=== PATIENT | female | born 1990 | race Caucasian/White ===

== ENCOUNTER → 2016-06-22 | Outpatient (CLI) | payer MEDICAID ==
[~2016-06-22] MED LIST: ACET50TA PO; IBUP60TA PO; PREN1TAB11 PO
[2016-06-22 13:09] LABS: BASO % 0.5 % (0.0-1.0); EOS # 0.2 K/mm3 (0.0-0.50); EOS % 2.3 % (0.0-3.0); LARGE UNSTAINED CELL # 0.2 K/mm3 (0.0-0.4); LARGE UNSTAINED CELL % 1.7 % (0.0-4.0); LYMPH # 1.7 K/mm3 (1.5-6.5); LYMPH % 16.4 % (24.0-44.0); MEAN CORPUSCULAR HEMOGLOBIN 29.9 pg (27.0-33.0); MEAN CORPUSCULAR HGB CONC 32.8 g/dl (32.0-36.5); MEAN CORPUSCULAR VOLUME 91.3 fl (80.0-96.0); MONO # 0.4 K/mm3 (0.0-0.8); MONO % 4.1 % (0.0-5.0); NEUTROPHILS # 7.9 K/mm3 (1.8-7.7); NEUTROPHILS % 75.1 % (36.0-66.0); PLATELET COUNT, AUTOMATED 206 k/mm3 (150-450); RED CELL DISTRIBUTION WIDTH 12.2 % (11.5-14.5); WHITE BLOOD COUNT 10.6 K/mm3 (4.0-10.0)
[2016-06-22 13:11] LABS: HBsAg Prenatal NEGATIVE (NEGATIVE)
[2016-06-22 14:05] LABS: HIV SCRN NEGATIVE (NEGATIVE); HIV SCRN1 NEGATIVE (NEGATIVE)
[2016-06-22 14:06] LABS: CONTROL LINE INT CTR LINE PRESENT
== END ==
LOC: MERGE 09:57 → M LAB 09:57
PROVIDERS: ATTEND Obstetrics & Gynecology
DX: Z36 Encounter for antenatal screening of mother (principal)

== ENCOUNTER → 2016-06-23 | Outpatient (CLI) | payer MEDICAID ==
--- NOTE | 2016-06-23 12:22 | REP ---
Third trimester obstetrical ultrasound: There are no prior ultrasounds available during this gestation. There is an single intrauterine gestation in a vertex presentation. There is movement and cardiac activity, the heart rate is 150 beats per minute. The placenta is fundal. There is no placenta previa or placental abruptio. The placenta is grade 1 maturity. Subjectively the amniotic fluid volume is normal. The amniotic fluid index is 11.5 (8.0 - 24.9). The cervix is 3.8 cm length. By today's ultrasound gestational age is 34 weeks 4 days. The YA is 07/31/2016. weight is 2513 grams (5 pounds, 8 ounces). This is the 50th percentile for 34 weeks 4 days. Umbilical artery Doppler assessment: Resistive index is 0.55 (a 0.59 - 0.75) S/D ratio 2.21 (2.00 - 3.00). Diastolic flow velocity 27.7 cm per second - normal. Evaluation of anatomy during the third trimester is suboptimal. However, during the examination we are able to identify normal intracranial lateral ventricles, choroid plexus, cavum septum pellucidum, cerebellum/posterior fossa, lungs, diaphragm, stomach, three-vessel cord, kidneys, bladder and spine. The remainder of the anatomy could not be adequately demonstrated. Signed by Wing Worthy MD 06/23/2016 12:13 P
== END ==
LOC: M RAD 10:28 → MERGE 11:00
PROVIDERS: ATTEND Obstetrics & Gynecology
DX: Z36 Encounter for antenatal screening of mother (principal); Z3A.34 34 weeks gestation of pregnancy

== ENCOUNTER 2016-07-04 11:24 | Inpatient (IN) | payer MEDICAID, OTHER ==
[~2016-07-04] VITALS: Ht 170.2 cm; Wt 74.0 kg
[2016-07-04 11:38] VITALS: BP 124/73
[2016-07-04] MEDS ORDERED: LACTATED RINGER'S 1000 ML IV STA (12:09)
[2016-07-04] MEDS ORDERED: OXYTOCIN DRIP 30 UNITS in APPROPRIATE DILUENT 1 EA IV SCH (12:15)
[2016-07-04] MEDS ORDERED: PROMETHAZINE INJ 25 MG/ML VIAL (J2550) IV PRN (12:15)
[2016-07-04] MEDS ORDERED: BUTORPHANOL 2 MG/ML INJ (J0595) IV PRN (12:15)
[2016-07-04] MEDS ORDERED: LR 1,000 ML IV SCH (12:45)
[2016-07-04 12:48] VITALS: BP 115/61
[2016-07-04 12:56] LABS: AMPHETAMINES URINE REFLEX NEGATIVE (NEGATIVE); BARBITURATES URINE REFLEX NEGATIVE (NEGATIVE); BENZODIAZEPINES URINE REFLEX NEGATIVE (NEGATIVE); COCAINE METABOLITE URINE REFLE NEGATIVE (NEGATIVE); MEAN CORPUSCULAR HEMOGLOBIN 31.7 pg (27.0-33.0); MEAN CORPUSCULAR HGB CONC 34.7 g/dl (32.0-36.5); MEAN CORPUSCULAR VOLUME 91.4 fl (80.0-96.0); METHADONE URINE REFLEX NEGATIVE (NEGATIVE); OPIATES URINE REFLEX NEGATIVE (NEGATIVE); PHENCYCLIDINE URINE REFLEX NEGATIVE (NEGATIVE); RED CELL DISTRIBUTION WIDTH 12.9 % (11.5-14.5); WHITE BLOOD COUNT 12.6 K/mm3 (4.0-10.0)
[2016-07-04 13:18] VITALS: BP 113/61
[2016-07-04 13:48] VITALS: BP 116/65
[2016-07-04 14:18] VITALS: BP 108/55
[2016-07-04 14:51] VITALS: BP 107/55
--- NOTE | 2016-07-05 07:50 | HPE ---
DATE OF ADMISSION: 07/04/2016 26-year-old 5, para 0-3-1-3, estimated date of delivery 07/26/2016. Reports spontaneous rupture of membranes clear fluid this morning at 02:00 followed by onset of irregular contractions. Denies bleeding. Fetus is active. Last normal menstrual period unknown. complicated by inadequate care. Ultrasound at 21 weeks at [place] confirmed the date of 07/26/2016. Only visit recorded has been at [facility] on June 22 at 33 weeks. panel and group B strep recently obtained. Growth sonogram 06/23/2016, showed estimated weight of 2513 grams, cephalic 50th percentile. OBSTETRICAL HISTORY: 1. 2012, normal spontaneous vaginal , 33 weeks viable female 4 pounds 7 ounces. 2. 2013, early miscarriage. 3. 2014, normal spontaneous vaginal , viable female 33 weeks 3 pounds 7 ounces, received weekly progesterone injections. 4. 2015, normal spontaneous vaginal , 36 weeks viable female 6 pounds 7 ounces weekly progesterone injections. ALLERGIES: No known drug allergies. MEDICAL/SURGICAL HISTORY: noncontributory. FAMILY HISTORY: Cardiac disease. SOCIAL HISTORY: . Family present. Reports smoking one half pack per day. Denies alcohol or drugs. OBJECTIVE: Prepregnancy weight 145, total weight gain 31 pounds. B negative. No record of receiving RhoGAM this . Rubella immune. VDRL, hepatitis B, hepatitis C, HIV, gonorrhea, Chlamydia all negative. 1-hour glucose 99 and group B strep is negative. Vital signs are stable. No apparent distress. Heart rate is regular. Respirations are easy. Abdomen is soft, gravid, longitudinal lie. Irregular contractions. heart 135, moderate variability with accelerations. Sterile spec exam moderate clear fluid draining per vagina. Positive Nitrazine, positive fern. Sterile vaginal exam: 1 cm high and posterior. ASSESSMENT: 1. Multipara. 2. premature rupture of membranes at 36 weeks 6 days, category one tracing. PLAN: Admit per consult. Pitocin augmentation of labor. The patient considering epidural. Anticipate normal spontaneous vaginal .
[2016-07-06] MEDS ORDERED: INFLUENZA QUADRIVALENT PF VACCINE 0.5ML SYRINGE/VIAL (90686) IM ONE (11:00)
[2016-07-06] MEDS ORDERED: ADACEL/BOOSTRIX VACCINE (DIPHTH/PERTUSS/ACELL/TETANUS)0.5ML SYR (90715) IM ONE (12:00)
== END 2016-07-04 15:57 | disposition left against medical advice (07) | DRG 566 ==
LOC: M LDI 11:24
PROVIDERS: ADMIT Advanced Practice Midwife; ATTEND Advanced Practice Midwife
DX: O42.013 Preterm premature rupture of membranes, onset of labor within 24 hours of rupture, third trimester (principal); Z3A.36 36 weeks gestation of pregnancy

== ENCOUNTER 2016-07-04 17:56 | Inpatient (IN) | payer MEDICAID ==
[~2016-07-04] VITALS: Ht 170.2 cm; Wt 76.0 kg
[2016-07-04] MEDS ORDERED: ANUSOL HC CREAM 30GM TOP PRN (18:45)
[2016-07-04] MEDS ORDERED: RHOGAM 300 MCG (1500 IU) INJ (J2790) IM SCH (18:45)
[2016-07-04] MEDS ORDERED: DIBUCAINE 1% OINTMENT 30GM TOP PRN (18:45)
[2016-07-04] MEDS ORDERED: METHYLERGONOVINE MALEATE 0.2 MG TAB PO PRN (18:45)
[2016-07-04] MEDS ORDERED: MOM 30ML SUSPENSION UDC PO PRN (18:45)
[2016-07-04] MEDS ORDERED: OXYTOCIN INJ 10 UNITS/ML VIAL (J2590) IM ONE (18:45)
[2016-07-04] MEDS ORDERED: ACETAMINOPHEN 500 MG TAB PO PRN (18:45)
[2016-07-04] MEDS ORDERED: DOCUSATE SODIUM 100 MG CAP PO PRN (18:45)
[2016-07-04] MEDS ORDERED: MEASLES,MUMPS,RUBELLA VACCINE INJ (MMR-II) (90707) SC SCH (18:45)
[2016-07-04] MEDS ORDERED: IBUPROFEN 800 MG TAB PO PRN (18:45)
[2016-07-04 19:22] LABS: AMPHETAMINES URINE REFLEX NEGATIVE (NEGATIVE); BARBITURATES URINE REFLEX NEGATIVE (NEGATIVE); BENZODIAZEPINES URINE REFLEX NEGATIVE (NEGATIVE); COCAINE METABOLITE URINE REFLE NEGATIVE (NEGATIVE); METHADONE URINE REFLEX NEGATIVE (NEGATIVE); OPIATES URINE REFLEX NEGATIVE (NEGATIVE)
[2016-07-04 19:49] LABS: CORD GAS ABE V -13.1; CORD GAS HCO3 V 13.2 MEQ/L; CORD GAS O2 SAT V 81.3 %; CORD GAS PCO2 V 32.2 mmHg; CORD GAS PH V 7.23 UNITS; CORD GAS PO2 V 39.1 mmHg; CORD GAS SBC V 14.2 MEQ/L; CORD GAS TCO2 V 14.2 MEQ/L
[2016-07-04 20:10] LABS: PHENCYCLIDINE URINE REFLEX NEGATIVE (NEGATIVE)
[2016-07-04 20:36] VITALS: BP 132/72
[2016-07-05] MEDS ORDERED: PRENATAL VITAMIN TAB PO SCH (09:00)
[2016-07-05] MEDS ORDERED: INFLUENZA QUADRIVALENT PF VACCINE 0.5ML SYRINGE/VIAL (90686) IM SCH (09:00)
[2016-07-05] MEDS ORDERED: ADACEL/BOOSTRIX VACCINE (DIPHTH/PERTUSS/ACELL/TETANUS)0.5ML SYR (90715) IM ONE (09:00)
--- NOTE | 2016-07-05 09:34 | HPE ---
DATE OF ADMISSION: 07/04/2016 26-year-old 5, para 0-3-1-3, estimated date of delivery 07/26/2016. Reports spontaneous rupture of membranes clear fluid this morning at 02:00 followed by onset of regular contractions. Denies bleeding. Fetus is active. Presents again after [facility] discharge today at 15:57. Last known menstrual period unknown. complicated by inadequate care. Sonogram at 21 weeks at [facility] confirmed the date of 07/26/2016. Only visit has been at [facility] 06/22/2016, at 33 weeks approximately. panel and group B strep recently obtained. Growth sonogram on 06/23/2016, shows estimated weight 2513 grams, cephalic and 50%. OBSTETRICAL HISTORY: 1. 2012, normal spontaneous vaginal , 33 weeks viable female 4 pounds 7 ounces. 2. 2013, early miscarriage. 3. 2014, normal spontaneous vaginal , viable female 33 weeks, 3 pounds 7 ounces, weekly progesterone injections. 4. 2015, normal spontaneous vaginal at 36 weeks, viable female 6 pounds 7 ounces, weekly progesterone injections. ALLERGIES: No known drug allergies. MEDICAL-SURGICAL HISTORY: Noncontributory. FAMILY HISTORY: Cardiac disease. SOCIAL HISTORY: . Family present. Reports smoking one half pack per day. Denies alcohol or drugs. OBJECTIVE: Prepregnancy weight 145, total weight gain 31 pounds. A negative. No record of receiving RhoGAM this . Rubella immune. VDRL, hepatitis B, hepatitis C, HIV, gonorrhea, Chlamydia all negative. 1-hour glucose 99. Group B strep is negative. Vital signs are stable. Breathing with contractions with urge to push. Abdomen is soft, gravid, longitudinal lie. Contractions every 2-3 minutes and strong. heart 135, moderate variability with accelerations. Clear fluid draining per vagina. STERILE VAGINAL EXAM: Fully dilated, +1 station. ASSESSMENT: 1. Multipara. 2. , premature rupture of membranes (PPROM) at 36 weeks 6 days. 3. Category one tracing. 4. Imminent delivery. PLAN: Admit. Anticipate normal spontaneous vaginal . [facility]
--- NOTE | 2016-07-05 13:27 | DN ---
DATE: 07/04/2016 DELIVERY NOTE: Spontaneous rupture of membranes clear fluid 0200 hours. Pitocin augmentation of labor. Patient left against medical advice (AMA) at 1557 hours, at 3-4 cm dilated. She was fully dilated upon return to unit. Viable female delivery right occiput anterior (COLEEN) through tight nuchal cord at 1807 hours. Slow to transition. Cord doubly clamped and cut. to warmer for stimulation and resuscitation. score and weight pending. Placenta Golden intact with three-vessel cord at 1816 hours. Fundus firmed with massage and IM Pitocin 10 units. Estimated blood loss 300 mL. Perineum intact. Right labial laceration noted. Patient refused repair. Straight cath at delivery for the urine drug screen (UDS). Sponge, sharp and instrument count correct. MTDD
[2016-07-06 08:20] LABS: URINE ETHANOL 1 Negative % (Cutoff=0.020)
== END 2016-07-04 21:05 | disposition left against medical advice (07) | DRG 560 ==
LOC: M LDI 17:56 → M OBS 20:05
PROVIDERS: ADMIT Advanced Practice Midwife; ATTEND Advanced Practice Midwife
PROC: 10E0XZZ Delivery of Products of Conception, External Approach (ICD-10-PCS; principal; 2016-07-04)
DX: O42.013 Preterm premature rupture of membranes, onset of labor within 24 hours of rupture, third trimester (principal); Z37.0 Single live birth; Z3A.36 36 weeks gestation of pregnancy; O09.30 Supervision of pregnancy with insufficient antenatal care, unspecified trimester; O70.0 First degree perineal laceration during delivery; O69.89X0 Labor and delivery complicated by other cord complications, not applicable or unspecified

== ENCOUNTER → 2017-12-07 | Outpatient (CLI) | payer MEDICAID ==
[2017-12-07 13:18] LABS: BASO % 0.4 % (0.0-1.0); EOS # 0.3 10^3/uL (0.0-0.50); EOS % 2.5 % (0.0-3.0); HEMATOCRIT 39.3 % (36.0-47.0); HEMOGLOBIN 13.3 g/dl (12.0-15.5); IMMATURE GRANULOCYTE % 0.4 % (0-3.0); LYMPH # 2.2 10^3/uL (1.5-6.5); LYMPH % 21.8 % (24.0-44.0); MEAN CORPUSCULAR HEMOGLOBIN 31.4 pg (27.0-33.0); MEAN CORPUSCULAR HGB CONC 33.8 g/dl (32.0-36.5); MEAN CORPUSCULAR VOLUME 92.9 fl (80.0-96.0); MONO # 0.7 10^3/uL (0.0-0.8); MONO % 7.3 % (0.0-5.0); NEUTROPHILS # 6.7 10^3/uL (1.8-7.7); NEUTROPHILS % 67.6 % (36.0-66.0); PLATELET COUNT, AUTOMATED 230 10^3/uL (150-450); RED BLOOD COUNT 4.23 10^6/uL (4.00-5.40); WHITE BLOOD COUNT 9.9 10^3/uL (4.0-10.0)
[2017-12-07 15:07] LABS: CHLAMYDIA DNA AMPLIFICATION NEGATIVE (NEGATIVE); GC DNA AMPLIFICATION NEGATIVE (NEGATIVE)
[2017-12-08 10:04] LABS: RUBELLA IgG QUALITATIVE IMMUNE (IMMUNE)
[2017-12-08 10:17] LABS: HBsAg Prenatal NEGATIVE (NEGATIVE)
[2017-12-08 10:34] LABS: HEPATITIS C VIRUS ABY INDEX 0.3 INDEX (<0.8)
[2017-12-08 10:34] LABS: HIV 1&2 SCREEN CENTAUR NEGATIVE (NEGATIVE)
== END ==
LOC: M SMT 10:31
DX: Z36.89 Encounter for other specified antenatal screening (principal); Z3A.01 Less than 8 weeks gestation of pregnancy
CPT/HCPCS: 86762

== ENCOUNTER → 2018-02-27 | Outpatient (CLI) | payer MEDICAID | LOC: M SMT 13:21 | DX: Z36.9 Encounter for antenatal screening, unspecified (principal); Z3A.19 19 weeks gestation of pregnancy | CPT/HCPCS: 76811 ==

== ENCOUNTER → 2018-05-04 | Outpatient (CLI) | payer MEDICAID ==
[~2018-05-04] MED LIST changes: -ACET50TA PO; +MAPA500T2 PO
[2018-05-04 10:42] LABS: BASO # 0.1 10^3/uL (0.0-0.2); BASO % 0.5 % (0.0-1.0); EOS # 0.2 10^3/uL (0.0-0.50); EOS % 1.8 % (0.0-3.0); HEMATOCRIT 34.4 % (36.0-47.0); HEMOGLOBIN 11.6 g/dl (12.0-15.5); LYMPH % 16.9 % (24.0-44.0); MEAN CORPUSCULAR HEMOGLOBIN 31.6 pg (27.0-33.0); MEAN CORPUSCULAR HGB CONC 33.7 g/dl (32.0-36.5); MEAN CORPUSCULAR VOLUME 93.7 fl (80.0-96.0); MONO # 0.8 10^3/uL (0.0-0.8); MONO % 7.1 % (0.0-5.0); NEUTROPHILS # 8.7 10^3/uL (1.8-7.7); NEUTROPHILS % 73.4 % (36.0-66.0); PLATELET COUNT, AUTOMATED 206 10^3/uL (150-450); RED BLOOD COUNT 3.67 10^6/uL (4.00-5.40); WHITE BLOOD COUNT 11.8 10^3/uL (4.0-10.0)
== END ==
LOC: M SMT 09:36
PROVIDERS: ATTEND Specialist
DX: O09.212 Supervision of pregnancy with history of pre-term labor, second trimester (principal)
CPT/HCPCS: 36415; 85025; 86850; 86870; 86900; 86901; J2790

== ENCOUNTER → 2018-06-19 | Outpatient (REF) | payer OTHER, MEDICAID | LOC: M LAB REF 13:36 | PROVIDERS: ATTEND Advanced Practice Midwife | DX: O09.213 Supervision of pregnancy with history of pre-term labor, third trimester (principal); Z3A.00 Weeks of gestation of pregnancy not specified ==

== ENCOUNTER 2018-07-03 16:21 | Inpatient (IN) | payer OTHER ==
[~2018-07-03] VITALS: Ht 170.2 cm; Wt 83.5 kg
[2018-07-03 16:36] VITALS: BP 117/74
[2018-07-03] MEDS ORDERED: LR 1,000 ML IV SCH (17:00)
[2018-07-03] MEDS ORDERED: OXYTOCIN DRIP 30 UNITS in APPROPRIATE DILUENT 1 EA IV SCH ×2 (17:00→19:00)
--- NOTE | 2018-07-03 17:16 | HPE ---
DATE OF ADMISSION: 07/03/2018 Berenice is a 28-year-old, 6, para 0-4-1-4 at 37-2/7 weeks' gestation with an estimated date of confinement (EDC) of 07/22/2018 based on first-trimester ultrasound. She presents to labor and delivery today with report of spontaneous rupture of membranes at approximately 2100 last night. She denies any regular painful contractions. She does report continued leakage of fluid. Denies vaginal bleeding. care initiated at [facility] in the first trimester. course complicated by a history of delivery times four. She was offered Flores injections and did ultimately decline. She is noncompliant with care and tobacco use throughout her . OBSTETRIC HISTORY: February 2013: 33-week gestation, 4 pound 7 ounce female, vaginal delivery. May 2013: Spontaneous miscarriage. June 2014: 33 weeks' gestation, 3 pound 7 ounce female, vaginal delivery. July 2015: 36 weeks' gestation, 6 pound 7 ounce female, vaginal delivery. June 2016: 36-6/7 weeks, 5 pound 10 ounce female, vaginal delivery. OBSTETRIC LABORATORIES: A negative, antibody screen negative, rubella immune, [facility] ([facility]) nonreactive. Urine culture no growth. Hepatitis B surface antigen negative, HIV negative, hepatitis C antibody nonreactive, gonorrhea and chlamydia negative. Gestational diabetic screening normal.. Group B streptococcus (GBS) is negative. PAST MEDICAL HISTORY: Noncontributory. SURGERIES: None. FAMILY HISTORY: Diabetes, heart disease. SOCIAL HISTORY: The patient is . She is here alone for her labor at this time. Her mother is en route to the hospital. She is a tobacco user. Denies alcohol and drug use. Denies history of any sexually-transmitted infection. Denies history of abuse: physical, sexual, and emotional. ALLERGIES: No known drug allergies. CURRENT MEDICATION: Includes: - vitamin OBJECTIVE: Temperature 97.7, pulse 99, respirations 16, blood pressure (BP) is 117/74. heart rate is 150 with moderate variability, positive accelerations, no decelerations. There is an occasional contraction that palpates mild. She was seen in the office and noted to be ruptured, positive Nitrazine, positive ferning, grossly ruptured. Sterile vaginal examination: 5 cm dilated. Her abdomen is gravid, cephalic presentation. Estimated weight 6-1/2 pounds. ASSESSMENT: Intrauterine at 37-2/7 weeks. heart rate category one. Premature rupture of membranes (PROM). PLAN: Admit the patient to labor and delivery. Out of bed ad dalia. Clear-liquid diet at this time. Routine laboratories. Start intravenous (IV) Pitocin for labor induction. The patient has been verbally consented for emergency surgery and blood products if necessary. I do anticipate an active labor and a spontaneous vaginal delivery.
[2018-07-03 17:20] LABS: HEMATOCRIT 38.9 % (36.0-47.0); HEMOGLOBIN 13.1 g/dl (12.0-15.5); MEAN CORPUSCULAR HEMOGLOBIN 31.3 pg (27.0-33.0); MEAN CORPUSCULAR HGB CONC 33.7 g/dl (32.0-36.5); MEAN CORPUSCULAR VOLUME 93.1 fl (80.0-96.0); PLATELET COUNT, AUTOMATED 263 10^3/uL (150-450); RED BLOOD COUNT 4.18 10^6/uL (4.00-5.40); WHITE BLOOD COUNT 16.9 10^3/uL (4.0-10.0)
[2018-07-03] MEDS ORDERED: DIBUCAINE 1% OINTMENT 30GM TOP PRN (19:00)
[2018-07-03] MEDS ORDERED: RHOGAM 300 MCG (1500 IU) INJ (J2790) IM SCH (19:00)
[2018-07-03] MEDS ORDERED: DOCUSATE SODIUM 100 MG CAP PO PRN (19:00)
[2018-07-03] MEDS ORDERED: ACETAMINOPHEN 500 MG TAB PO PRN (19:00)
[2018-07-03] MEDS ORDERED: METHYLERGONOVINE MALEATE 0.2 MG TAB PO PRN (19:00)
[2018-07-03] MEDS ORDERED: MEASLES,MUMPS,RUBELLA VACCINE INJ (MMR-II) (90707) SC SCH (19:00)
--- NOTE | 2018-07-03 19:38 | DN ---
DATE: 07/03/2018 Berenice is a 28-year-old 6, para 1-4-1-5 now who was admitted to labor and delivery with premature rupture of membranes. IV Pitocin was started and labor did ensue. She utilized physiological coping mechanisms to cope with her labor. She progressed to full dilation at 1838. She pushed to a normal spontaneous vaginal delivery of a live female infant in occiput anterior (OA) position with restitution to ROT position at 1845. There is a nuchal cord times one, loose, reduced manually at the time of delivery. Shoulders delivered with gentle downward guidance and the corpus immediately followed. The female was placed on maternal abdomen, crying and active. Her mouth and nares were bulb suctioned. The cord was clamped times two once pulsations ceased and cut by the maternal grandmother under my direction. Cord blood was obtained. Spontaneous expulsion of an intact placenta with three-vessel cord by Terrell mechanism was at 1849. Uterine hemostasis achieved with IV Pitocin rapid infusion and uterine fundal massage. Estimated blood loss 250 mL. Perineum and vagina inspected, noted to have a right labial laceration. The patient refused repair of her laceration, it was not bleeding. [place] female weighed 5 pounds 13 ounces. 2650 grams. 9 and 9. Mom is going to bottle feed her and the family have named her [place]. At the close of delivery, lap counts and instrument counts were correct and verified.
[2018-07-03] MEDS: IBUPROFEN 800 MG TAB PO PRN (20:56)
[2018-07-03 21:29] VITALS: BP 124/64
[2018-07-04 06:21] VITALS: BP 135/66
[2018-07-04] MEDS ORDERED: PRENATAL VITAMINS CHEWABLE TABLET PO SCH (09:00)
[2018-07-04] MEDS: IBUPROFEN 800 MG TAB PO PRN (09:46)
[2018-07-04] MEDS ORDERED: IBUP-1114 PO (15:43)
[2018-07-04] MEDS ORDERED: MAPA500T2 PO (15:43)
== END 2018-07-04 20:00 | disposition home or self-care (01) | DRG 560 ==
LOC: M LDI 16:21 → M OBS 21:05
PROVIDERS: ADMIT Advanced Practice Midwife; ATTEND Advanced Practice Midwife
PROC: 10E0XZZ Delivery of Products of Conception, External Approach (ICD-10-PCS; principal; 2018-07-03)
DX: O99.334 Smoking (tobacco) complicating childbirth (principal); F17.200 Nicotine dependence, unspecified, uncomplicated; Z37.0 Single live birth; Z3A.37 37 weeks gestation of pregnancy; Z87.51 Personal history of pre-term labor; O42.02 Full-term premature rupture of membranes, onset of labor within 24 hours of rupture; O69.82X0 Labor and delivery complicated by other cord entanglement, without compression, not applicable or unspecified; O70.0 First degree perineal laceration during delivery

== ENCOUNTER → 2018-08-07 | Outpatient (REF) | payer OTHER, MEDICAID ==
[~2018-08-07] MED LIST changes: +IBUP-1114 PO
[2018-08-07 16:04] LABS: CHLAMYDIA DNA AMPLIFICATION NEGATIVE (NEGATIVE); GC DNA AMPLIFICATION NEGATIVE (NEGATIVE)
== END ==
LOC: M LAB REF 14:00
PROVIDERS: ATTEND Advanced Practice Midwife
DX: Z11.3 Encounter for screening for infections with a predominantly sexual mode of transmission (principal)

== ENCOUNTER 2018-09-05 09:48 | Day surgery (SDC) | payer OTHER ==
[~2018-09-05] VITALS: Ht 167.6 cm; Wt 74.8 kg
[~2018-09-05 09:48] MED LIST changes: +IBUP600T42 PO; -IBUP60TA PO
[2018-09-05 10:18] LABS: HEMATOCRIT 43.4 % (36.0-47.0); HEMOGLOBIN 14.5 g/dl (12.0-15.5); MEAN CORPUSCULAR HEMOGLOBIN 30.4 pg (27.0-33.0); MEAN CORPUSCULAR HGB CONC 33.4 g/dl (32.0-36.5); PLATELET COUNT, AUTOMATED 223 10^3/uL (150-450); RED BLOOD COUNT 4.77 10^6/uL (4.00-5.40); WHITE BLOOD COUNT 7.5 10^3/uL (4.0-10.0)
[2018-09-05 11:07] LABS: URINE PREG TEST NEGATIVE (NEGATIVE)
[2018-09-05] MEDS ORDERED: OXYC1TAB23 PO (12:42)
[2018-09-05] MEDS ORDERED: BUPIVACAINE HCL 0.25% 30 ML VIAL As Ordered ONE (12:49)
[2018-09-05] MEDS ORDERED: PROPOFOL 200 MG/20 ML VIAL As Ordered ONE (14:00)
[2018-09-05] MEDS ORDERED: GLYCOPYRROLATE INJ 0.2 MG/ML 2 ML VIAL As Ordered ONE (14:00)
[2018-09-05] MEDS ORDERED: HYDROmorphone HCL 2 MG/ML 1ML VIAL (J1170) As Ordered ONE (14:00)
[2018-09-05] MEDS ORDERED: MIDAZOLAM INJ 2 MG/2 ML VIAL (J2250) As Ordered ONE (14:00)
[2018-09-05] MEDS ORDERED: ESMOLOL INJ 100MG/10ML VIAL As Ordered ONE (14:00)
[2018-09-05] MEDS ORDERED: fentaNYL 250 MCG/5 ML INJECTION (J3010) As Ordered ONE (14:00)
[2018-09-05] MEDS ORDERED: LIDOCAINE 2% INJ 100 MG/5 ML SDV (FOR ANES.) As Ordered ONE (14:00)
[2018-09-05] MEDS ORDERED: KETOROLAC 60 MG/2 ML VIAL (J1885) As Ordered ONE (14:00)
[2018-09-05] MEDS ORDERED: ROCURONIUM BROMIDE 50 MG/5 ML VIAL As Ordered ONE (14:00)
[2018-09-05] MEDS ORDERED: ONDANSETRON 4MG/2ML VIAL (J2405) As Ordered ONE (14:00)
[2018-09-05] MEDS ORDERED: SUGAMMADEX SODIUM 500 MG/5 ML VIAL (BRIDION) As Ordered ONE (14:00)
[2018-09-05] MEDS ORDERED: dexameTHASONE 4 MG/ML 1ML VIAL (J1100) As Ordered ONE (14:00)
--- NOTE | 2018-09-05 14:26 | RO ---
DATE OF PROCEDURE: 09/05/2018 PREOPERATIVE DIAGNOSIS: Satisfied parity with undesired fertility. POSTOPERATIVE DIAGNOSIS: Satisfied parity with undesired fertility. PROCEDURE PERFORMED: Laparoscopic bilateral salpingectomy. SURGEON: Ana Hagen MD HEAD OF DRAMA: None. ANESTHESIA: General endotracheal anesthesia. ESTIMATED BLOOD LOSS: 5 mL. INTRAVENOUS FLUIDS: 500 mL of lactated Ringer's solution. URINE OUTPUT: 500 mL. OPERATIVE FINDINGS: Patient with normal-appearing pelvic anatomy to include the uterus and bilateral adnexa. Appendix was visualized. SPECIMENS: Bilateral fallopian tubes. PREOPERATIVE ANTIBIOTICS: None. INFECTION CLASSIFICATION: I. DESCRIPTION OF OPERATION: After informed consent was obtained and written consent was reviewed, the patient was brought to the operating room where general endotracheal anesthesia was obtained. She was then placed in lithotomy position and was prepped and draped in normal sterile fashion. A time out in the operating room was then performed identifying the patient, procedure to be performed, as well as drug allergies. A bivalved speculum was then placed revealing the cervix. The anterior lip of the cervix was grasped with a single tooth tenaculum. The Hulka tenaculum was advanced through cervical os for means to manipulate the uterus. The single tooth tenaculum and speculum then removed. A Kyle catheter was placed and set to gravity. Gloves were changed and attention was turned to the patient's abdomen where 1/4% Marcaine was infused in the umbilical region. An incision was made and a 5 mm trocar and sleeve was advanced through this incision. The laparoscope was then replaced revealing intra-abdominal placement. The abdomen was then surveyed with the above noted findings. Two additional port sites were placed. The first was placed in the patient's left side just below the umbilicus. This area was infused with 1/4% Marcaine and a 5 mm trocar and sleeve was advanced through this incision under direct visualization. The third port was placed 2 cm above the pubic symphysis in the midline. This area was also incised after infusion of 1/4% Marcaine. An 8 mm trocar and sleeve was then advanced through this incision under direct visualization. Next, bilateral salpingectomies were then performed. The left fallopian tube was placed on traction and dissection was done along the mesosalpinx and the tube was transected at the level of the uterus. The specimen was then brought out. In a similar fashion, the right fallopian tube was placed on traction. Dissection was performed in the mesosalpinx at the level of the uterus and the fallopian tube was transected. The specimen was brought out through the port site. Chevy was then applied over the surgical field. Hemostasis was noted. The pneumoperitoneum was then released as well as the instruments. The trocars were then removed. The port sites were closed with #4-0 Monocryl and dressed with Dermabond. The Hulka tenaculum was removed. The tenaculum sites were inspected and hemostatic. Kyle catheter was removed. The patient was then taken out of lithotomy position, was awakened from general anesthesia and taken to recovery in stable condition. Counts were correct.
[2018-09-05] MEDS ORDERED: METOCLOPRAMIDE INJ 10MG/2ML VIAL (J2765) IV PRN (14:30)
[2018-09-05] MEDS ORDERED: ONDANSETRON 4MG/2ML VIAL (J2405) IV PRN (14:30)
[2018-09-05] MEDS ORDERED: PERCOCET 5MG/325MG TAB PO PRN ×2 (14:30)
[2018-09-05] MEDS ORDERED: fentaNYL 100 MCG/2 ML INJECTION (J3010) IV PRN (14:30)
[2018-09-05] MEDS ORDERED: LR 1,000 ML IV SCH (14:30)
[2018-09-05 16:05] VITALS: BP 115/60
[2018-09-05] MEDS ORDERED: KETOROLAC 30 MG/ML VIAL (J1885) IV SCH (20:00)
[2018-09-06] MEDS ORDERED: fentaNYL 250 MCG/5 ML INJECTION (J3010) As Ordered ONE (07:15)
== END 2018-09-05 16:22 | disposition home or self-care (01) ==
LOC: M SDC 09:48
PROVIDERS: ATTEND Obstetrics & Gynecology
DX: Z30.2 Encounter for sterilization (principal); F17.210 Nicotine dependence, cigarettes, uncomplicated
CPT/HCPCS: 36415; 58661; 84703; 85027; 86850; 86870; 86900; 86901; 88302; J1100; J1170; J1885; J2250; J2405; J3010

== ENCOUNTER 2019-08-08 12:07 | Emergency (ER) | payer OTHER ==
[~2019-08-08] VITALS: Ht 167.6 cm; Wt 86.8 kg
[~2019-08-08 12:07] MED LIST changes: +OXYC1TAB23 PO
[2019-08-08] MEDS ORDERED: KETOROLAC 30 MG/ML VIAL (J1885) IV ONE (12:45)
--- NOTE | 2019-08-08 13:43 | REP ---
PELVIC ULTRASOUND: Real-time sonographic evaluation of the pelvis is performed utilizing transabdominal and endovaginal technique. Bladder measures 5.5 x 2.3 x 6.7 cm. The uterus measures 9.9 x 4.5 x 5.7 cm. Endometrial thickness is 9 mm. There is no endometrial fluid collection. Right ovary measures 4.2 x 2.3 x 3.2 cm and left ovary 2.6 x 2.1 x 2.2 cm. Complex dominant follicle in the right ovary measures 1.8 cm. There is no other evidence of adnexal mass. There is no evidence of ovarian torsion, blood flow is seen in each ovary with duplex Doppler evaluation. There is trace free fluid. IMPRESSION: Normal endometrium. Complex dominant follicle right ovary 1.8 cm. No torsion. Trace free fluid. Electronically Signed by Wing Cast MD 08/08/2019 04:56 P
[2019-08-08 13:50] LABS: BASO # 0.1 10^3/uL (0.0-0.2); BASO % 0.7 % (0.0-1.0); EOS # 0.3 10^3/uL (0.0-0.5); EOS % 2.3 % (0.0-3.0); HEMATOCRIT 41.5 % (36.0-47.0); HEMOGLOBIN 13.8 g/dl (12.0-15.5); LYMPH # 1.2 10^3/uL (1.5-5.0); LYMPH % 10.2 % (24.0-44.0); MEAN CORPUSCULAR HEMOGLOBIN 31.6 pg (27.0-33.0); MEAN CORPUSCULAR HGB CONC 33.3 g/dl (32.0-36.5); MONO # 0.6 10^3/uL (0.0-0.8); MONO % 5.1 % (0.0-5.0); NEUTROPHILS # 9.5 10^3/uL (1.5-8.5); NEUTROPHILS % 81.1 % (36.0-66.0); PLATELET COUNT, AUTOMATED 225 10^3/uL (150-450); RED BLOOD COUNT 4.37 10^6/uL (4.00-5.40); WHITE BLOOD COUNT 11.8 10^3/uL (4.0-10.0)
[2019-08-08 14:23] LABS: FREE T4 1.03 NG/DL (0.76-1.46); THYROID STIMULATING HORMONE 0.943 uIU/ML (0.358-3.740)
[2019-08-08] MEDS ORDERED: KETO10TAB PO (14:49)
[2019-08-08 15:33] VITALS: BP 109/57
== END 2019-08-08 15:37 | disposition home or self-care (01) ==
LOC: M ED 12:07
DX: N83.291 Other ovarian cyst, right side (principal); R11.0 Nausea; F17.210 Nicotine dependence, cigarettes, uncomplicated
CPT/HCPCS: 36415; 76830; 76856; 80047; 84439; 84443; 84702; 85025; 93976; 96374; 99284; J1885

== ENCOUNTER → 2019-09-02 | Outpatient (REF) | payer OTHER ==
[~2019-09-02] MED LIST changes: +KETO10TAB PO
[2019-09-02 14:32] LABS: CHOLESTEROL RISK RATIO 5.078 (<5)
[2019-09-02 15:43] LABS: CHLAMYDIA DNA AMPLIFICATION NEGATIVE (NEGATIVE); GC DNA AMPLIFICATION NEGATIVE (NEGATIVE)
[2019-09-02 16:01] LABS: HEMOGLOBIN A1c 5.1 %
== END ==
LOC: M SFHCPLAZ 09:08
PROVIDERS: ATTEND Internal Medicine
DX: Z13.1 Encounter for screening for diabetes mellitus (principal); Z13.220 Encounter for screening for lipoid disorders; N89.8 Other specified noninflammatory disorders of vagina

== ENCOUNTER → 2020-01-10 | Outpatient (REF) | payer OTHER ==
[2020-01-10 17:29] LABS: APPEARANCE, URINE CLEAR (CLEAR); BACTERIA, URINE AUTO NEGATIVE (NEGATIVE); BILIRUBIN, URINE AUTO NEGATIVE (NEGATIVE); BLOOD, URINE BLOOD NEGATIVE (NEGATIVE); COLOR, URINE STRAW (YELLOW); GLUCOSE, URINE (UA) AUTO NEGATIVE (NEGATIVE); KETONE, URINE AUTO NEGATIVE (NEGATIVE); LEUKOCYTE ESTERASE, URINE AUTO NEGATIVE (NEGATIVE); NITRITE, URINE AUTO NEGATIVE (NEGATIVE); PROTEIN, URINE AUTO NEGATIVE (NEGATIVE); RBC, URINE AUTO 0 /HPF (0-3); SPECIFIC GRAVITY URINE AUTO 1.003 (1.002-1.035); SQUAMOUS EPITHELIAL CELL UR AU 0 /HPF (0-6); UROBILINOGEN, URINE AUTO 0.2 mg/dL (0.0-2.0); WBC, URINE AUTO 1 /HPF (0-3)
== END ==
LOC: M LAB REF 16:50
PROVIDERS: ATTEND Physician Assistant
DX: N39.0 Urinary tract infection, site not specified (principal)

== ENCOUNTER → 2020-03-17 | Outpatient (REF) | payer OTHER | LOC: M SFHCWAGY 13:37 | PROVIDERS: ATTEND Specialist | DX: Z12.4 Encounter for screening for malignant neoplasm of cervix (principal); R87.612 Low grade squamous intraepithelial lesion on cytologic smear of cervix (LGSIL) ==

== ENCOUNTER → 2020-05-01 | Outpatient (REF) | payer OTHER | LOC: M SFHCWAGY 17:12 | PROVIDERS: ATTEND Specialist | DX: R87.612 Low grade squamous intraepithelial lesion on cytologic smear of cervix (LGSIL) (principal) ==

== ENCOUNTER → 2021-03-15 | Outpatient (REF) | payer OTHER | LOC: M SFHCWAGY 13:13 | PROVIDERS: ATTEND Specialist | DX: Z12.4 Encounter for screening for malignant neoplasm of cervix (principal) ==

== ENCOUNTER → 2021-06-16 | Outpatient (REF) | payer OTHER | LOC: M SFHCWAGY 11:21 | PROVIDERS: ATTEND Specialist | DX: N87.1 Moderate cervical dysplasia (principal) ==